=== PATIENT | female | born 1955 | race Two or more races ===

== ENCOUNTER 2018-11-26 10:49 | Emergency (ER) | payer OTHER ==
[~2018-11-26] VITALS: Ht 162.6 cm; Wt 98.0 kg
[~2018-11-26 10:49] MED LIST: ANTI ACID PO; CATAFLAM50 MG PO; CLONAZEPAM0.125 MG/T PO; COD LIVER OIL1 EACH PO; DIOVAN HCT 160-1 TAB PO; INTEGRA PLUS CAPSULE PO; NEURIN PO; NORVASC5 MG PO; OXYC1TAB9 PO; ULTRACET PO; XARELTO 10MG PO
[2018-11-26] MEDS ORDERED: PRILOSEC10 MG PO (11:09)
[2018-11-26] MEDS ORDERED: COZAAR50 MG PO (11:09)
[2018-11-26] MEDS ORDERED: NORVASC2.5 M1 PO (11:10)
== END 2018-11-26 16:02 | disposition home or self-care (01) ==
LOC: ER 10:49
DX: S80.02XA Contusion of left knee, initial encounter (principal); W18.39XA Other fall on same level, initial encounter; Y93.89 Activity, other specified; Y92.098 Other place in other non-institutional residence as the place of occurrence of the external cause; Y99.8 Other external cause status

== ENCOUNTER 2018-12-14 08:31 | Outpatient (CLI) | payer OTHER ==
[~2018-12-14 08:31] MED LIST changes: +COZAAR50 MG PO; +NORVASC2.5 M1 PO; +PRILOSEC10 MG PO
== END 2018-12-14 08:40 | disposition home or self-care (01) ==
LOC: NUCLEAR 08:31
DX: T84.033A Mechanical loosening of internal left knee prosthetic joint, initial encounter (principal)
CPT/HCPCS: 78315; 78802; A9503; A9556

== ENCOUNTER 2019-11-11 09:03 | Outpatient (CLI) | payer OTHER | END 2019-11-11 09:07 | disposition home or self-care (01) | LOC: SONOGRAMA 09:03 | DX: R76.0 Raised antibody titer (principal) ==

== ENCOUNTER 2020-03-01 10:59 | Outpatient (CLI) | payer OTHER | END 2020-03-01 11:23 | disposition home or self-care (01) | LOC: RAD 10:59 | DX: M75.42 Impingement syndrome of left shoulder (principal); M17.12 Unilateral primary osteoarthritis, left knee | CPT/HCPCS: 73221 ==

== ENCOUNTER 2020-09-14 11:49 | Outpatient (CLI) | payer OTHER | END 2020-09-14 11:58 | disposition home or self-care (01) | LOC: MRI 11:49 | DX: M75.51 Bursitis of right shoulder (principal); M75.41 Impingement syndrome of right shoulder | CPT/HCPCS: 73218 ==

== ENCOUNTER 2021-02-27 12:18 | Inpatient (IN) | payer OTHER ==
[~2021-02-27] VITALS: Ht 162.6 cm; Wt 83.9 kg
[2021-03-08] MEDS ORDERED: B Complex CAPSULE PO (10:49)
[2021-03-08] MEDS ORDERED: LIPITOR20 MG PO (10:49)
[2021-03-08] MEDS ORDERED: FOLIC ACID1 MG PO (10:49)
[2021-03-08] MEDS ORDERED: PROTONIX40 MG PO (10:49)
[2021-03-08] MEDS ORDERED: LOSARTAN-HCTZ1 EACH PO (10:49)
[2021-03-08] MEDS ORDERED: AMLODIPINE BESYL5 MG PO (10:49)
[2021-03-08] MEDS ORDERED: Neurin-Sl Tablet Sl SL (10:49)
== END 2021-03-08 12:37 | disposition designated cancer center or children's hospital (05) | DRG 809 ==
LOC: ER 12:18 → MEDI 02-28 09:28 → SEC-K 02-28 09:28 → MEDI 02-28 11:21
PROVIDERS: ADMIT Internal Medicine; ATTEND Internal Medicine
PROC: 8E0ZXY6 Isolation (ICD-10-PCS; 2021-02-28)
PROC: 30233N1 Transfusion of Nonautologous Red Blood Cells into Peripheral Vein, Percutaneous Approach (ICD-10-PCS; 2021-02-28)
PROC: 30233R1 Transfusion of Nonautologous Platelets into Peripheral Vein, Percutaneous Approach (ICD-10-PCS; 2021-02-28)
PROC: 07DR3ZX Extraction of Iliac Bone Marrow, Percutaneous Approach, Diagnostic (ICD-10-PCS; principal; 2021-03-06)
DX: D61.818 Other pancytopenia (principal); L03.113 Cellulitis of right upper limb; T82.898A Other specified complication of vascular prosthetic devices, implants and grafts, initial encounter; T80.1XXA Vascular complications following infusion, transfusion and therapeutic injection, initial encounter; C50.912 Malignant neoplasm of unspecified site of left female breast; I80.8 Phlebitis and thrombophlebitis of other sites
CPT/HCPCS: 73223